=== PATIENT | female | born 1950 | race Caucasian/White ===

== ENCOUNTER 2020-05-17 01:30 | Outpatient (CLI) | payer MEDICARE, SELFPAY ==
--- NOTE | 2020-05-17 07:15 | DI.MRI_ITS ---
EXAM: MR LUMBAR SPINE WO CLINICAL HISTORY: LOW BACK AND RADICULAR PAIN,M53.86,M54.5,Z87.39,H/O CALCIUM PYROPHOSPHATE. TECHNIQUE: Multiplanar multisequence MRI of the Lumbar spine was performed. COMPARISON: No exams were available for comparison FINDINGS: Bones: The last intervertebral disc space is designated the L5/S1 level for the numbering purpose of this examination. The vertebral body heights are well maintained. Alignment is satisfactory. Endpla te degenerative signal changes are seen at L4-5 and L5-S1. Cord: The conus tip ends at the L1 level. It is of normal size and signal intensity. T12-L1: No disc herniations or bulges are present. No central spinal canal or neural foraminal stenos is. L1-2: No disc herniations or bulges are present. No central spinal canal or neural foraminal stenosis . L2-3: No disc herniations or bulges are present. No central spinal canal or neural foraminal stenosis . L3-4: There is a mild diffuse disc bulge. Mild degenerative changes of the facets are noted. These contribute to cause mild narrowing of the central spinal canal. No significant right neural foramina l stenosis is present. There is mild left neural foraminal stenosis. L4-5: There is a mild diffuse disc bulge. Mild hypertrophic changes are seen at the facets. There i s mild narrowing of the central spinal canal. Anti-qt-pcfdcryr bilateral neural foraminal stenosis i s present. L5-S1: There is a diffuse disc bulge and a small central disc herniation. Hypertrophic changes of th e facets are noted. No significant central spinal canal stenosis is present. No significant neural foraminal stenosis is present. Soft tissues: The visualized SI joints and sacrum are well maintained. The paraspinal soft tissues ar e unremarkable. IMPRESSION: Multilevel degenerative changes in the lumbar spine resulting in central spinal canal and neural fora genny stenosis as described above. DATA REPOSITORY:
== END 2020-05-17 01:50 ==
PROVIDERS: PCP Student in an Organized Health Care Education/Training Program; Visit Provider Student in an Organized Health Care Education/Training Program
DX: M48.061 Spinal stenosis, lumbar region without neurogenic claudication (principal); M47.816 Spondylosis without myelopathy or radiculopathy, lumbar region; M51.27 Other intervertebral disc displacement, lumbosacral region; Z87.39 Personal history of other diseases of the musculoskeletal system and connective tissue
CPT/HCPCS: 72148

== ENCOUNTER 2020-07-20 14:55 | Outpatient (CLI) | payer MEDICARE, SELFPAY ==
--- NOTE | 2020-07-20 11:15 | DI.RAD_ITS ---
Exam(s) XR HIP RT COMPLETE AP PELVIS EXAM: XR HIP RT COMPLETE AP PELVIS CLINICAL HISTORY: right lateral hip and groin pain with hip flexion TECHNIQUE: COMPARISON: No exams were available for comparison FINDINGS: Two views were obtained. There are mild degenerative changes of both hips with slight narrowing cart ilaginous joint spaces and moderate osteophyte formation of the acetabula E and to a lesser degree th e femoral heads. There is bony excrescence of the proximal aspect of the right femur below the level of the lesser tro chanter seen on the lateral view. This may represent an osteochondroma. If there is a clinical susp icion of impingement additional evaluation with MRI may be considered. IMPRESSION: RADIATION DOSE DELIVERED: Total DLP
== END 2020-07-20 15:15 ==
PROVIDERS: PCP Student in an Organized Health Care Education/Training Program; Visit Provider Nurse Practitioner Family
DX: R10.31 Right lower quadrant pain (principal); M25.551 Pain in right hip; M16.0 Bilateral primary osteoarthritis of hip
CPT/HCPCS: 73502

== ENCOUNTER → 2020-08-31 09:50 | Outpatient (BNVA) | payer MEDICARE, SELFPAY | PROVIDERS: PCP Student in an Organized Health Care Education/Training Program; Referring Provider Student in an Organized Health Care Education/Training Program; Visit Provider Student in an Organized Health Care Education/Training Program | DX: M16.11 Unilateral primary osteoarthritis, right hip (principal) | CPT/HCPCS: 99203 ==

== ENCOUNTER 2020-10-12 03:44 | Outpatient (CLI) | payer MEDICARE, SELFPAY ==
--- NOTE | 2020-10-12 08:30 | DI.RAD_ITS ---
Exam(s) RF JOINT INJECTION FLUORO GUID EXAM: RF JOINT INJECTION FLUORO GUID CLINICAL HISTORY: left hip inj under fluoro,primary oa,m16.12 TECHNIQUE: Fluoroscopy provided. Radiologist not present. CONTRAST MATERIAL: None COMPARISON: No exams were available for comparison FINDINGS: Fluoroscopy was provided for therapeutic left hip injection Submitted image(s) reveal needle placement via lateral approach with the needle tip at the lateral as pect of the femoral head. There is intra-articular contrast noted. Please refer to the procedure report for complete details. Cumulative Dose: nimco Vicente=5.65 mGy IMPRESSION: RADIATION DOSE DELIVERED:
--- NOTE | 2020-10-12 08:30 | DI.RAD_ITS ---
Exam(s) RF JOINT INJECTION FLUORO GUID EXAM: RF JOINT INJECTION FLUORO GUID CLINICAL HISTORY: Right hip inj under fluoro,primary oa rt hip, m16.11 TECHNIQUE: Fluoroscopy provided. Radiologist not present. CONTRAST MATERIAL: None COMPARISON: No exams were available for comparison FINDINGS: Fluoroscopy was provided for Dr. Thompson during right hip therapeutic injection. Submitted image(s) reveal needle placement via lateral approach with needle tip at the junction of th e lateral aspect of the femoral head and neck. Intra-articular contrast injected. Please refer to the procedure report for complete details. Cumulative Dose: nimco Vicente=4.49 mGy IMPRESSION: RADIATION DOSE DELIVERED:
[2020-10-12] MEDS: Omnipaque 300 MG/ML 10 ML BTL IJ ×2 (13:29→13:31)
[2020-10-12] MEDS: Bupivacaine 0.5% Pres-Free 10 ML VIAL IJ ×2 (13:30→13:36)
[2020-10-12] MEDS: methylPREDNISolone ACETATE 80 MG/ML VIAL IM ×2 (13:31→13:35)
--- NOTE | 2020-10-12 13:40 | OPPNE_ITS ---
Date of service: 10/12/20 Time of Service: 13:40 Procedure Note Date of procedure: 10/12/20 Procedure: Right Hip Injection with Fluoroscopic Guidance Surgeon/Proceduralist/Physician: Stevie Thompson Procedure Diagnosis: Right Hip Osteoarthritis Procedure Indications: Cristy has had persistent pain of the RIGHT and LEFT hip and buttock. Noninvasive measures have been tried. To serve as both diagnostic and therapeutic, an injection under fluoroscopy was recommended. I had discussed the risks of the procedure and the patient elected to proceed. Procedure Description: Cristy was greeted in the flouroscopy room. The correct side was identified and the consent was reviewed with the patient and signed. The patient was then placed in the supine position on the fluoroscopy table. The RIGHT hip was then prepped with Chloraprep. The anterolateral injection starting point was identiifed by bony landmarks and fluoroscopy. The skin and soft tissue in the tract of the injection was anesthetized with 1% Lidocaine. A spinal needle was then inserted deep into the hip joint at the level of the lateral femoral neck under f luoroscopic guidance. A small amount of Omnipaque solution was injected to confirm intraarticular placement. Once confirmed, the hip was injected with 6cc of 0.5% Bupivicaine and 80mg of Depo-Medrol. A bandaid was placed on the injection site. Attention was then turned to the LEFT hip. The LEFT hip was then prepped with Chloraprep. The anterolateral injection starting point was identiifed by bony landmarks and fluoroscopy. The skin and soft tissue in the tract of the injection was anesthetized with 1% Lidocaine. A spinal needle was then inserted deep into the hip joint at the level of the lateral femoral neck under fluoroscopic guidance. A small amount of Omnipaque solution was injected to confirm intraarticular placement. Once confirmed, the hip was injected with 6cc of 0.5% Bupivicaine and 80mg of Depo-Medrol. A bandaid was placed on the injection site. The patient tolerated the procedure well.
== END 2020-10-12 04:04 ==
PROVIDERS: PCP Student in an Organized Health Care Education/Training Program; Visit Provider Student in an Organized Health Care Education/Training Program
DX: M16.11 Unilateral primary osteoarthritis, right hip (principal); M16.12 Unilateral primary osteoarthritis, left hip; M25.551 Pain in right hip; M25.552 Pain in left hip; R10.31 Right lower quadrant pain; R10.32 Left lower quadrant pain
CPT/HCPCS: 20610; 77002; J1040

== ENCOUNTER 2021-01-19 08:37 | Outpatient (CLI) | payer MEDICARE, SELFPAY ==
--- NOTE | 2021-01-19 10:30 | DI.RAD_ITS ---
Exam(s) XR CERVICAL SPINE COMP 4-5V EXAM: XR CERVICAL SPINE COMP 4-5V CLINICAL HISTORY: evaluate bony path; curvature; vert spacing,CERVICALAGIA,M54.2,M25.50,? H/O. TECHNIQUE: 2D digital imaging was performed. COMPARISON: No exams were available for comparison FINDINGS: There is straightening of the normal cervical lordosis secondary to degenerative changes. There is m ild narrowing of the C5-6 and C6-7 disc spaces and small endplate osteophytes, projecting mainly ante riorly. Facet degenerative changes are noted throughout. There is apparent bilateral neural foramin al narrowing at C5-6 and C6-7. This soft tissues are unremarkable. IMPRESSION: Degenerative changes causing bilateral neural foraminal narrowing at C5-6 and C6-7. DATA REPOSITORY: RADIATION DOSE DELIVERED:
== END 2021-01-19 08:57 ==
PROVIDERS: PCP Student in an Organized Health Care Education/Training Program; Visit Provider Student in an Organized Health Care Education/Training Program
DX: M25.59 Pain in other specified joint; M50.322 Other cervical disc degeneration at C5-C6 level; M50.323 Other cervical disc degeneration at C6-C7 level
CPT/HCPCS: 72050

== ENCOUNTER 2021-04-26 02:20 | Outpatient (CLI) | payer MEDICARE, SELFPAY ==
--- NOTE | 2021-04-26 13:32 | DI.DEXA_ITS ---
Exam(s) XR DEXA BONE DENSITY W/WO DUSTIN EXAM: XR DEXA BONE DENSITY W/WO DUSTIN CLINICAL HISTORY: evaluate osteoporosis,m81.0 TECHNIQUE: Routine DEXA evaluation of the lumbar spine, hip, or forearm. COMPARISON: CR XR HIP RT COMPLETE AP PELVIS from 07/20/2020 FINDINGS: Performed on a Hologic unit. Lateral image: No compression fracture evident. Lumbar Spine total T-score: -0.9 Hip total T-score:-3.1 Independent reading at the level of the femoral neck yields at T-score of -2.9. Forearm total T-score: -2.8 IMPRESSION: Bone mineral density measures in the osteoporosis range. Fracture risk is high. Note: Any spine fracture indicates 5x risk for subsequent spine fracture and 2x risk for subsequent h ip fracture. World Health Organization criteria for BMD interpretation classify patients: Normal...... T- Score at or above -1.0 Osteopenic... T- Score between -1.0 and -2.5 Osteoporosis... T-Score at or below -2.5
== END 2021-04-26 02:40 ==
PROVIDERS: PCP Student in an Organized Health Care Education/Training Program; Visit Provider Student in an Organized Health Care Education/Training Program
DX: M81.0 Age-related osteoporosis without current pathological fracture (principal)
CPT/HCPCS: 77080

== ENCOUNTER 2021-05-22 03:04 | Outpatient (CLI) | payer MEDICARE, SELFPAY ==
--- NOTE | 2021-05-22 08:15 | DI.RAD_ITS ---
Exam(s) XR SHOULDER RT COMPLETE 2+V EXAM: XR SHOULDER RT COMPLETE 2+V CLINICAL HISTORY: evaluate joint space; bony path; Ca,rt shoulder pain, m25.511. TECHNIQUE: 2D digital imaging was performed. COMPARISON: No exams were available for comparison FINDINGS: Four views the right shoulder reveal no evidence of fracture or dislocation nor diminution of the sub acromial space. However, there is a tiny calcification just above the greater tuberosity indicating calcific tendonitis of the rotator cuff mechanism. No osteophytes. No joint space narrowing. AC bud int exhibits mild degenerative changes. IMPRESSION: 1-2 millimeter calcification above the greater tuberosity consistent with calcific rotator cuff tendi nitis. DATA REPOSITORY: RADIATION DOSE DELIVERED:
--- NOTE | 2021-05-22 08:15 | DI.RAD_ITS ---
Exam(s) XR SHOULDER LT COMPLETE 2+V EXAM: XR SHOULDER LT COMPLETE 2+V CLINICAL HISTORY: lt shoulder pain, m25.511. TECHNIQUE: 2D digital imaging was performed. COMPARISON: CR XR SHOULDER RT COMPLETE 2+V from 05/22/2021 FINDINGS: Four views of the left shoulder reveal no evidence of fracture nor dislocation or abnormal soft tissu e calcifications. No degenerative changes in the glenohumeral joint. Subacromial space is not dimin ished. Mild degenerative changes AC. No osseous lesions. Bone density age-appropriate. IMPRESSION: No significant radiographic findings. DATA REPOSITORY: RADIATION DOSE DELIVERED:
--- NOTE | 2021-05-22 08:15 | DI.RAD_ITS ---
Exam(s) XR KNEE RT 4V AP,LAT,TAD,PAT EXAM: XR KNEE RT 4V AP,LAT,TAD,PAT CLINICAL HISTORY: eval joint space, CPPD,rt knee pain, m25.561. TECHNIQUE: 2D digital imaging was performed. COMPARISON: CR XR KNEE LT 4V AP,LAT,TAD,PAT from 05/22/2021 FINDINGS: Four views of the right knee reveal no evidence of fracture although there appears to be a small amou nt of increased joint fluid. Chondrocalcinosis is noted in both medial and lateral compartments. No narrowing of the medial lateral compartments. No osteophytes. No degenerative changes evident in t he patellofemoral compartment. IMPRESSION: Chondrocalcinosis. No other findings although there does appear to be a small joint effusion. DATA REPOSITORY: RADIATION DOSE DELIVERED:
--- NOTE | 2021-05-22 08:15 | DI.RAD_ITS ---
Exam(s) XR KNEE LT 4V AP,LAT,TAD,PAT EXAM: XR KNEE LT 4V AP,LAT,TAD,PAT CLINICAL HISTORY: eval joint space, CPPD,lt knee pain,m25.562. TECHNIQUE: 2D digital imaging was performed. COMPARISON: No exams were available for comparison FINDINGS: Four views of the left knee reveal no evidence of fracture nor joint effusion. No joint space narrow ing but there is chondrocalcinosis in both medial lateral compartments without joint space narrowing nor osteophytes. IMPRESSION: No joint space narrowing. Chondrocalcinosis. No joint effusion. DATA REPOSITORY: RADIATION DOSE DELIVERED:
== END 2021-05-22 03:24 ==
PROVIDERS: PCP Student in an Organized Health Care Education/Training Program; Visit Provider Student in an Organized Health Care Education/Training Program
DX: M25.511 Pain in right shoulder (principal); M75.31 Calcific tendinitis of right shoulder; M25.512 Pain in left shoulder; M25.562 Pain in left knee; M11.262 Other chondrocalcinosis, left knee; M25.561 Pain in right knee; M25.461 Effusion, right knee; M11.261 Other chondrocalcinosis, right knee; M11.89 Other specified crystal arthropathies, multiple sites
CPT/HCPCS: 36415; 80048; 82306; 73030; 73564

== ENCOUNTER 2021-05-22 04:03 | Outpatient (CLI) | payer MEDICARE, SELFPAY ==
[2021-05-22 14:37] LABS: Anion Gap 9.6 mmol/L (3-11); BUN 16 mg/dL (7-18); CO2 28.4 mmol/L (21.0-32.0); CREATININE 0.7 mg/dL (0.55-1.02); Calcium 9.7 mg/dL (8.5-10.1); Chloride 100 mmol/L (98-107); Glucose 133 mg/dL (74-106); Sodium 138 mmol/L (136-145)
[2021-05-24 04:51] LABS: Vitamin D 25 Total 56.9 ng/mL (30-100)
== END 2021-05-22 04:04 | disposition home or self-care (01) ==
LOC: LBO 04:04
PROVIDERS: PCP Student in an Organized Health Care Education/Training Program; Visit Provider Student in an Organized Health Care Education/Training Program
DX: M81.0 Age-related osteoporosis without current pathological fracture (principal); E86.0 Dehydration; Z79.1 Long term (current) use of non-steroidal anti-inflammatories (NSAID)
CPT/HCPCS: 36415; 80048; 82306

== ENCOUNTER → 2023-05-19 04:12 | Outpatient (CLI) | payer MEDICARE, SELFPAY ==
--- NOTE | 2023-05-19 08:00 | DI.DEXA_ITS ---
Exam(s) XR DEXA BONE DENSITY W/WO DUSTIN EXAM: XR DEXA BONE DENSITY W/WO DUSTIN CLINICAL HISTORY: evaluate bone density post med Tx, on prednisone therapy, osteoporosis TECHNIQUE: COMPARISON: CR XR DEXA BONE DENSITY W/WO DUSTIN from 04/26/2021 FINDINGS: Lateral Spine Image: Unremarkable. No compression deformities identified. Left hip: Total T-Score: -3.4. This compares to -3.1 on the prior examination. Total Z-Score: -1.7 T- and Z-scores: Findings are consistent with osteoporosis. Lumbar Spine: Total T-Score: -0.1. This compares to -0.9 on the prior examination. Total Z-Score: 2.3 T- and Z-scores: Within normal limits. IMPRESSION: Osteoporosis of the left hip.
== END ==
PROVIDERS: PCP Student in an Organized Health Care Education/Training Program; Visit Provider Student in an Organized Health Care Education/Training Program
DX: Z79.52 Long term (current) use of systemic steroids (principal); M81.0 Age-related osteoporosis without current pathological fracture; Z79.83 Long term (current) use of bisphosphonates; Z13.820 Encounter for screening for osteoporosis
CPT/HCPCS: 77080

== ENCOUNTER 2023-08-26 13:23 | Emergency (ER) | payer MEDICARE, SELFPAY ==
[2023-08-26] VITALS (10 sets, daily range): BP systolic 133–139; BP diastolic 50–108; PULSE 65–78; RESP 18; TEMP 36.6; O2SAT 97–99
--- NOTE | 2023-08-26 13:45 | DI.MRI_ITS ---
Exam(s) MR BRAIN WO EXAM: MR BRAIN WO CLINICAL HISTORY: Diplopia, 6th cranial nerve palsy TECHNIQUE: Multiplanar multisequence MRI of the brain was performed. COMPARISON: No exams were available for comparison FINDINGS: CEREBRAL PARENCHYMA: There is no evidence of intracranial hemorrhage, mass effect, or shift of midline structures. There are no extra-axial fluid collections. Ventricles are not enlarged or shifted. There is no significant focal signal abnormality in the cerebellar hemispheres nor within the marlon, m idbrain, and thalami. There are multiple small sub cm foci of FLAIR bright signal abnormality in the bilateral periventricu lar white matter, the most prominent being adjacent to the atrium of the left lateral ventricle. The se areas and not associated with hemorrhage, surrounding edema, nor restricted diffusion. There is no significant focal signal abnormality evident on diffusion imaging to suggest acute ischem ic event. SWI: No evidence of microhemorrhages. PITUITARY GLAND: No mass nor parasellar abnormality. No obvious abnormality in the cavernous sinuses. FLOW VOIDS: The expected flow void are noted. No evidence of obvious aneurysm nor obvious vascular ma lformation. PARANASAL SINUSES: The visualized paranasal sinuses appear unremarkable. No obvious finding ORBITS: No obvious findings. IMPRESSION: Chronic small-vessel white matter ischemic changes but no evidence of acute ischemic event and no bria dence of intracranial hemorrhage. Called by myself to ER provider DATA REPOSITORY:
--- NOTE | 2023-08-26 13:55 | W.ED.GENAD ---
Discharge Plan Discharge Details Chief Complaint: EyeProblem Primary Care Provider: Lili Burgess ED Provider: Gil Solo Home Meds and New Rx's Prescriptions: No Action CeraVe SA Lotion See Rx Instructions topical .COMPLEX Qty: 237 2RF Rx Instructions: 8-10 FTU BID to arms, legs topically; Centrum Women 18-400 mg-mcg tablet 1 tab PO DAILY Patient Comments: with 100mg of magnesium biotin 2,000 mcg PO DAILY cholecalciferol (vitamin D3) 25 mcg (1,000 unit) capsule 50 mcg PO DAILY naproxen 500 mg tablet 500 mg PO DAILY PRN (Reason: pain) Qty: 90 3RF Rx Instructions: hip/back pain diclofenac sodium [Arthritis Pain (diclofenac)] 1 % gel 2 g topical QID PRN (Reason: inflammation) Qty: 100 1RF Rx Instructions: apply to shldr/neck Probiotic Pearls Women's 1 billion cell capsule,delayed release(DR/EC) PO DAILY calcium carbonate 600 mg calcium (1,500 mg) tablet 600 mg PO DAILY tacrolimus 0.1 % ointment 1 applic topical BID Rx Instructions: When not using augmented betamethasone estradiol 0.01 % (0.1 mg/gram) cream 2 g vaginal DAILY Qty: 42.5 2RF betamethasone, augmented [Diprolene (augmented)] 0.05 % ointment 1 applic topical BID PRN (Reason: dermatitis of LE) Qty: 45 3RF Rx Instructions: [place]/04/20 [place] [facility] (apply topically twice daily x 2 weeks, with one week break; repeat as needed for flares) alendronate 70 mg tablet, effervescent 70 mg PO QWEEK Qty: 60 0RF Rx Instructions: Take weekly, dissolved in water as per pharmacy directions HPI General Mode of arrival: ambulatory. Date/Time Provider Initiated Documentation: 08/26/23 13:38. Limitations to Documentation: no limitations. Information obtained by: patient, RN notes reviewed and old records reviewed. 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 The provider at offsite facility does recommend MRI for double vision. Patient has no obvious other cranial nerve deficits noted on initial exam denies any weakness numbness tingling in arms or legs, she is alert and oriented x 4, Related Data Home Medications Medication Instructions Recorded Confirmed calcium carbonate 600 mg PO DAILY 01/09/21 08/26/23 biotin 2,000 mcg PO DAILY 05/08/21 08/26/23 cholecalciferol (vitamin D3) 25 50 mcg PO DAILY 05/08/21 08/26/23 mcg (1,000 unit) capsule multivitamin-ferrous 1 tab PO DAILY 05/08/21 08/26/23 fumarate-folic acid 18 mg-400 mcg tablet (Centrum Women) tacrolimus 0.1 % topical ointment 1 applic topical BID 01/07/22 08/26/23 salicylic acid-ceramides 1,3,6-II See Rx Instructions topical 03/14/22 08/26/23 lotion (CeraVe SA lotion) .COMPLEX Rosacea #237 mL diclofenac sodium 1 % topical gel 2 g topical QID PRN inflammation 08/09/22 08/26/23 (Arthritis Pain (diclofenac)) #100 grams naproxen 500 mg tablet 500 mg PO DAILY PRN pain #90 tabs 08/09/22 08/26/23 L.acidophilus-L.plantarum-L.rhamnosus cap PO DAILY 03/25/23 04/01/23 1 billion cell capsule,delay rel (Probiotic Pearls Women's) estradiol 0.01% (0.1 mg/gram) 2 g vaginal DAILY #42.5 grams 04/04/23 08/26/23 vaginal cream betamethasone, augmented 0.05 % 1 applic topical BID PRN 04/08/23 08/26/23 topical ointment (Diprolene dermatitis of LE #45 grams (augmented)) alendronate 70 mg effervescent 70 mg PO QWEEK 30 or 60 as best 04/11/23 08/26/23 tablet ordered/dispensed per PHARM #60 tabs Previous Rx's Medication Instructions Recorded salicylic acid-ceramides 1,3,6-II See Rx Instructions topical 03/14/22 lotion (CeraVe SA lotion) .COMPLEX Rosacea #237 mL diclofenac sodium 1 % topical gel 2 g topical QID PRN inflammation 08/09/22 (Arthritis Pain (diclofenac)) #100 grams naproxen 500 mg tablet 500 mg PO DAILY PRN pain #90 tabs 08/09/22 estradiol 0.01% (0.1 mg/gram) 2 g vaginal DAILY #42.5 grams 04/04/23 vaginal cream betamethasone, augmented 0.05 % 1 applic topical BID PRN 04/08/23 topical ointment (Diprolene dermatitis of LE #45 grams (augmented)) alendronate 70 mg effervescent 70 mg PO QWEEK 30 or 60 as best 04/11/23 tablet ordered/dispensed per PHARM #60 tabs Allergies Allergy/AdvReac Type Severity Reaction Status Date / Time No Known Allergies Allergy Verified 08/26/23 13:34 General Stated Complaint: EyeProblem LAM: 3 Review of Systems All systems reviewed & are unremarkable except as noted in HPI and below Constitutional Constitutional: Reports as per HPI, Denies headache(s) and Denies weakness Eyes Eyes: Reports as per HPI, Reports diplopia and Reports eye pain ENT Ears, Nose, Mouth, and Throat: Denies headache(s) Cardiovascular Cardiovascular: Denies chest pain and Denies dyspnea Respiratory Respiratory: Denies dyspnea Gastrointestinal Gastrointestinal: Denies abdominal pain Musculoskeletal Musculoskeletal: Denies abnormal gait, Denies numbness and Denies tingling Neurologic Neurologic: Reports as per HPI, Denies abnormal gait, Denies headache(s), Denies lack of coordination, Denies localized weakness, Denies numbness, Reports other visual disturbances, Denies tingling and Denies weakness Exam Narrative Exam Narrative: Constitutional: Alert and oriented x3. Appears stated age. Normal body habitus. Head: Normocephalic, no trauma. Eyes: Pupils PERRL, Red reflex noted, EOM's intact. Eyelids symmetrical without lesions, discharge, or swelling. ENT: Bilateral TM's WNL, External ear normal to inspection, no mastoid TTP, swelling, or erythema, Nasal turbinates WNL, no nasal discharge. Normal dentition, Posterior pharynx WNL, no exudate. Chest: RRR, Normal S1, S2, distal pulses intact. Resp: Lungs clear to auscultation bilaterally, no wheezes, rales, or rhonchi. Abdomen: Soft, non-distended, Normoactive bowel sounds all 4 quads. Musculoskeletal: Normal gait, Moves all 4 extremities without difficulty. 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 Skin: No suspicious rashes or lesions. Capillary refill less than 2 sec. Neurologic: Alert and oriented x 3. No gross motor neurodeficits noted Sensory: Intact bilaterally all 4 extremities. Intact dorsiflexion pedal flexion, no leg drop, denies any problems with coordination, negative [id number]. No pronator drift. Hematologic/Lymphatic: No ecchymosis, no lymphadenopathy. Course Vital Signs Vital signs: Vital Signs Temperature 36.6 C 08/26/23 13:29 Pulse 72 08/26/23 13:29 Respiratory Rate 18 08/26/23 13:29 Blood Pressure 139/57 L 08/26/23 13:29 Pulse Oximetry 97 08/26/23 13:29 Temperature 36.6 C 08/26/23 13:42 Pulse 72 08/26/23 13:42 Respiratory Rate 18 08/26/23 13:42 Respiratory Effort Normal, Non-Labored 08/26/23 13:33 Blood Pressure 139/57 L 08/26/23 13:42 Blood Pressure Position Sitting 08/26/23 13:42 Pulse Oximetry 97 08/26/23 13:42 Oxygen Delivery Method Room Air 08/26/23 13:42 Oxygen Flow Rate 0 08/26/23 13:42 Pain Level 0 08/26/23 13:42 Medical Decision Making 73-year-old female presents to the ER referred by [facility] in [facility] for evaluation of double vision since August 14 and 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 The provider at offsite facility does recommend MRI for double vision. Patient has no obvious other cranial nerve deficits noted on initial exam denies any weakness numbness tingling in arms or legs, she is alert and oriented x 4, Workup ordered including CBC CMP PT PTT, IV urinalysis MRI brain without contrast. Care is to be handed off to oncoming provider MARCIO Arizmendi pending MRI results. Expected disposition is discharge with follow-up with PCP versus neurology consult. Medical Records Medical records reviewed: Yes I reviewed the patient's medical records. Lab Data Lab results reviewed: Yes I reviewed the patient's lab results. Labs: Laboratory Tests Range/Units 08/26/23 14:01 WBC (4.4-10.8) 10^3/uL 8.30 RBC (3.93-5.22) 10^6/uL 4.27 Hgb (11.2-15.7) g/dL 12.9 Hct (36.0-46.0) % 39.4 MCV (80-95) fL 92 MCH (27.0-33.0) pg 30.2 MCHC (32.0-36.0) % 32.7 RDW (11.7-14.6) % 11.5 L Plt Count (130-400) 10^3/uL 437 H MPV (8.0-11.0) fL 8.3 Immature Gran % % 0.2 Neutrophils % % 70.4 Lymphocytes % % 18.8 Monocytes % % 8.7 Eosinophils % % 1.1 Basophils % % 0.8 Nucleated RBC % (0.0-0.3) % 0.0 Absolute Neutrophils (1.2-6.7) 10^3/uL 5.84 Absolute Lymphocytes (1.2-3.4) 10^3/uL 1.56 Absolute Monocytes (0.1-0.8) 10^3/uL 0.72 Absolute Eosinophils (0.0-0.7) 10^3/uL 0.09 Absolute Basophils (0.0-0.2) 10^3/uL 0.07 PT (9.1-11.1) sec 10.2 INR (0.9-1.1) 1.0 APTT (23.6-32.8) sec 27.0 Sodium (136-145) mmol/L 140 Potassium (3.5-5.1) mmol/L 3.9 Chloride (98-107) mmol/L 100 Carbon Dioxide (21.0-32.0) mmol/L 29.7 Anion Gap (3-11) mmol/L 10.3 BUN (7-18) mg/dL 15 Creatinine (0.55-1.02) mg/dL 0.6 Est GFR (CKD-EPI 2020) (mL/min/1.73m2) 94.13 Glucose (74-106) mg/dL 96 Calcium (8.5-10.1) mg/dL 9.9 Magnesium (1.8-2.4) mg/dL 2.3 Total Bilirubin (0.2-1.0) mg/dL 0.5 AST (15-37) U/L 25 ALT (14-59) U/L 26 Alkaline Phosphatase (46-116) U/L 74 Total Protein (6.4-8.2) g/dL 8.7 H Albumin (3.4-5.0) g/dL 3.8 Quality:SDOH Health Related Social Needs: No Data to Display PFSH All Active Problems Cognitive complaints with normal exam (Acute) mini-co with delayed word #3 and correct clock, but some delay/confusn over little/big hand .. Memory changes (Acute) Anxiety (Chronic) Back pain due to inflammatory process (Acute) Hx of ongoing treatment with alendronate (Fosamax) (Acute) UTI (urinary tract infection) (Acute) x2! 06/06 and 07/10/2022 .. with resolution post Bactrim, but wondering re: etiology. Ptosis of both eyelids (Acute) Other osteoporosis without current pathological fracture (Acute) 09/26/21 Rheumatology note Osteoporosis (Chronic) Apr 2021 shows Hip (-3.1), L (-0.9), FenNk (-2.9), FArm (-2.8).. Hip T-score -2.7, no statistically change from 05/05/14 study Myalgia (Acute) mixed arthralgias/myalgias .. Arthralgia (Acute) mixed arthralgias/myalgias .. Polymyalgia rheumatica (Acute) Resolving, off prednisone (08/2022)! [place]01/[place] [facility] [place] Sharad May MD Bilateral buttock pain (Acute) New, rey with car rides .. Hips improved, but buttocks hurt. Pains are comstantly changing .. Knee pain, bilateral (Acute) Cervical disc disorder at C5-C6 level with radiculopathy (Acute) Cervicalgia (Acute) Worsening neck pain, stiffness .. Hx arthritis (?) per pt (XR? Dx?) Shoulder joint pain (Chronic) Hx Surgeries: Rt well-done, well-healed.. Lft poorly tolerated, poor healing (2' incision thru mm). Lower back pain (Acute) Nummular dermatitis (Acute) [place] Osorio, [facility] [place] Skin lesions, generalized (Acute) Probable amarilis keratoses, but derm evaluation appreciated as they are bothersome. Itching, discomfort on/off due to lesion and/or area (back, breast). Can Dr. thompson review/remove? 12/08/19[place] [place] note-irritated seborrheic Keratoses Angiokeratoma Psoriasis (a type of skin inflammation) (Chronic) Shave Biopsy 01/26/2018 - Leg lesion, responds well to Triamcinalone, used carefully. One tube lasts a year .. Rosacea (Acute) Metronidazole used sparingly .. per Dr. Thompson x years ago, refilled by PCP. Hx cauterizations. Atrophic vaginitis (Acute) Hyperlipidemia (Chronic) Statin started August 2017 --> STOPPED? LIPIDs 11/2018, 03/2020 WNL w/ good HDL. Medical History On prednisone therapy Completed 2021, Rheumatoid factor negative RF Neg and CCP Ab S, NEG per [facility] Lab results, 05/2021 Morning joint stiffness NOT OA per Rheum note, 06/01/21, as hips move well as she rises form chair w/o aid of UE. Hx of calcium pyrophosphate deposition disease (CPPD) Hx shoulder ~ 1988, XXXX Surgical History History of delivery 1971 & 1968 History of shoulder surgery 2008: Removal of Calcium Deposit (L) 1986: Removal of Calcium Deposit (R) History of tonsillectomy Family History Father Leukemia Congestive heart failure Hypertension Mother Diabetes Hypertension Brother Malignant neoplasm of pancreas Malignant tumor of pharynx Son Sarcoidosis Sjogren's syndrome Ny disease Social History Smoking/Tobacco Use Status: Former Tobacco Use Quit Date: 11/03/18 Tobacco: How many years used: 15 Smoking risk assessment performed?: Yes Alcohol Intake: never Drug use: Never Substance use type: does not use Foster care: No Household members: none Housing: house Number of Children: 2 number of grandchildren: 2 Communication Needs: None Do you need help understanding health information?: Never 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 She was sent here from [facility] for possible MRI and further evaluation. Patient denies headache, she does have some left facial lip droop which she reports is at her baseline. She is ANO x 4, no gross motor neuro deficits noted. Pending MRI brain without contrast results. Last updated by Danielle Jacobs NP at 08/26/23 15:11
[2023-08-26 14:27] LABS: Abs Immature Grans 0.02 10^3/uL (0.0-0.06); Absolute Basophil Count 0.07 10^3/uL (0.0-0.2); Absolute Eosinophil Count 0.09 10^3/uL (0.0-0.7); Absolute Lymphocyte Count 1.56 10^3/uL (1.2-3.4); Absolute Monocyte Count 0.72 10^3/uL (0.1-0.8); Absolute Neutrophil Count 5.84 10^3/uL (1.2-6.7); Basophils % 0.8 %; Eosinophils % 1.1 %; HCT 39.4 % (36.0-46.0); HGB 12.9 g/dL (11.2-15.7); Immature Grans % 0.2 %; Lymphocytes % 18.8 %; MCH 30.2 pg (27.0-33.0); MCHC 32.7 % (32.0-36.0); MCV 92 fL (80-95); MPV 8.3 fL (8.0-11.0); Monocytes % 8.7 %; Neutrophils % 70.4 %; Platelet Count 437 10^3/uL (130-400); RBC 4.27 10^6/uL (3.93-5.22); RDW 11.5 % (11.7-14.6); RDW-SD 39.2 fL
[2023-08-26 14:38] LABS: Prothrombin Time 10.2 sec (9.1-11.1)
[2023-08-26 14:51] LABS: ALT 26 U/L (14-59); AST 25 U/L (15-37); Albumin 3.8 g/dL (3.4-5.0); Alkaline Phosphatase 74 U/L (46-116); Anion Gap 10.3 mmol/L (3-11); BUN 15 mg/dL (7-18); Bilirubin, Total 0.5 mg/dL (0.2-1.0); CO2 29.7 mmol/L (21.0-32.0); CREATININE 0.6 mg/dL (0.55-1.02); Calcium 9.9 mg/dL (8.5-10.1); Chloride 100 mmol/L (98-107); Estimated GFR 94.13 (mL/min/1.73m2); Glucose 96 mg/dL (74-106); Magnesium 2.3 mg/dL (1.8-2.4); Potassium 3.9 mmol/L (3.5-5.1); Sodium 140 mmol/L (136-145); Total Protein 8.7 g/dL (6.4-8.2)
--- NOTE | 2023-08-26 16:02 | ED.PROG_ITS ---
Date of service: 08/26/23 Time of Service: 16:02 Medical Decision Making This dictation utilizes [id number] dictation software and may contain unedited grammatical errors. Patient seen in sign-out from Danielle Jacobs NP- please see her complete note. Essentially this 73 y/o F presents to ED today with a chief complaint of diplopia for the past week. Patient went to the eye doctor and he states she has a 6th cranial nerve palsy with L sided mouth drooping since at least August 14. Patient has had laboratory evaluation at time of sign-out, has no focal sensory or motor deficits save for this 6th CN palsy and L sided facial droop of unknown duration. Patient is awaiting read of MRI Brain wo Contrast - may need admission vs specialty consult for outpatient follow-up based on these results. Patients' medical history: Memory changes, anxiety, ptosis, cervicalgia, psoriasis, hyperlipidemia. Family and social history: Noncontributory. Diagnostic studies of: -Reviewed basic labs - benign, UA sample not collected yet by time of sign-out. -MRI shows no acute processes Interventions of: -none, recommend Neuro/Ophthalmology or Neuro-ophthalmology follow-up by PCP referral. 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 Patient was awaiting MRI which was negative for any acute intracranial processes. I recommend outpatient follow-up by PCP referral to neurology plus minus ophthalmology, I discussed this with the patient and strict return criteria for any acute visual changes, signs or symptoms of stroke like weakness, tingling, numbness, slurred speech, confusion and any return for severe sudden onset headache with further visual changes.. Findings not consistent with CVA, CN Lesion, loss of vision. Disposition of Diplopia. Patient verbalized understanding of the plan and return to ED criteria and e ngaged in shared decision making. Medical Records Medical records reviewed: Yes I reviewed the patient's medical records. Imaging Data Radiologic Study: Attestation: I personally reviewed and interpreted this imaging study as follows: Imaging: MRI Radiologist's impression: EXAM: MR BRAIN WO CLINICAL HISTORY: Diplopia, 6th cranial nerve palsy TECHNIQUE: Multiplanar multisequence MRI of the brain was performed. COMPARISON: No exams were available for comparison FINDINGS: CEREBRAL PARENCHYMA: There is no evidence of intracranial hemorrhage, mass effect, or shift of midline structures. There are no extra-axial fluid collections. Ventricles are not enlarged or shifted. There is no significant focal signal abnormality in the cerebellar hemispheres nor within the marlon, midbrain, and thalami. There are multiple small sub cm foci of FLAIR bright signal abnormality in the bilateral periventricular white matter, the most prominent being adjacent to the atrium of the left lateral ventricle. These areas and not associated with hemorrhage, surrounding edema, nor restricted diffusion. There is no significant focal signal abnormality evident on diffusion imaging to suggest acute ischemic event. SWI: No evidence of microhemorrhages. PITUITARY GLAND: No mass nor parasellar abnormality. No obvious abnormality in the cavernous sinuses. FLOW VOIDS: The expected flow void are noted. No evidence of obvious aneurysm nor obvious vascular malformation. PARANASAL SINUSES: The visualized paranasal sinuses appear unremarkable. No obvious finding ORBITS: No obvious findings. IMPRESSION: Chronic small-vessel white matter ischemic changes but no evidence of acute ischemic event and no evidence of intracranial hemorrhage. Called by myself to ER provider Lab Data Lab results reviewed: Yes I reviewed the patient's lab results. Labs: Laboratory Tests Range/Units 08/26/23 08/26/23 14:01 16:13 WBC (4.4-10.8) 10^3/uL 8.30 RBC (3.93-5.22) 10^6/uL 4.27 Hgb (11.2-15.7) g/dL 12.9 Hct (36.0-46.0) % 39.4 MCV (80-95) fL 92 MCH (27.0-33.0) pg 30.2 MCHC (32.0-36.0) % 32.7 RDW (11.7-14.6) % 11.5 L Plt Count (130-400) 10^3/uL 437 H MPV (8.0-11.0) fL 8.3 Immature Gran % % 0.2 Neutrophils % % 70.4 Lymphocytes % % 18.8 Monocytes % % 8.7 Eosinophils % % 1.1 Basophils % % 0.8 Nucleated RBC % (0.0-0.3) % 0.0 Absolute Neutrophils (1.2-6.7) 10^3/uL 5.84 Absolute Lymphocytes (1.2-3.4) 10^3/uL 1.56 Absolute Monocytes (0.1-0.8) 10^3/uL 0.72 Absolute Eosinophils (0.0-0.7) 10^3/uL 0.09 Absolute Basophils (0.0-0.2) 10^3/uL 0.07 PT (9.1-11.1) sec 10.2 INR (0.9-1.1) 1.0 APTT (23.6-32.8) sec 27.0 Sodium (136-145) mmol/L 140 Potassium (3.5-5.1) mmol/L 3.9 Chloride (98-107) mmol/L 100 Carbon Dioxide (21.0-32.0) mmol/L 29.7 Anion Gap (3-11) mmol/L 10.3 BUN (7-18) mg/dL 15 Creatinine (0.55-1.02) mg/dL 0.6 Est GFR (CKD-EPI 2020) (mL/min/1.73m2) 94.13 Glucose (74-106) mg/dL 96 Calcium (8.5-10.1) mg/dL 9.9 Magnesium (1.8-2.4) mg/dL 2.3 Total Bilirubin (0.2-1.0) mg/dL 0.5 AST (15-37) U/L 25 ALT (14-59) U/L 26 Alkaline Phosphatase (46-116) U/L 74 Total Protein (6.4-8.2) g/dL 8.7 H Albumin (3.4-5.0) g/dL 3.8 Urine Color (Yellow) Yellow Urine Clarity (Clear) Clear Urine pH (5-8) 7.5 Ur Specific [place] (1.005-1.025) 1.015 Urine Protein (Neg-Trace) mg/dL Negative Urine Ketones (Negative) mg/dL Negative Urine Blood (Negative) Trace-lysed H Urine Nitrite (Negative) Negative Urine Bilirubin (Negative) Negative Urine Urobilinogen (Up to 0.2) mg/dL 0.2 Ur Leukocyte Esterase (Negative) Negative Urine RBC (0-2) HPF 3-5 H Urine WBC (0-5) HPF Negative Ur Epithelial Cells (Negative) HPF Rare Urine Crystals (Negative) HPF Negative Urine Bacteria (Negative) HPF Negative Urine Mucus (Negative) Negative Ur Culture Indicated? No Urine Glucose (Negative) mg/dL Negative Quality:SDOH Health Related Social Needs: No Data to Display Sign Out Sign Out Data: Sign Out Comment: 73-year-old female presents with diplopia and left eye pain since August 14. She was sent here from [facility] for possible MRI and further evaluation. Patient denies headache, she does have some left facial lip droop which she reports is at her baseline. She is ANO x 4, no gross motor neuro deficits noted. Pending MRI brain without contrast results. Last updated by Danielle Jacobs NP at 08/26/23 15:11 Discharge Plan Disposition Patient Disposition: Home Condition: Stable Discharge Details Clinical Impression: Diplopia Primary Care Provider: Lili Burgess ED Provider: Gil Solo Home Meds and New Rx's Prescriptions: Continued CeraVe SA Lotion See Rx Instructions topical .COMPLEX Qty: 237 2RF Rx Instructions: 8-10 FTU BID to arms, legs topically; Centrum Women 18-400 mg-mcg tablet 1 tab PO DAILY Patient Comments: with 100mg of magnesium biotin 2,000 mcg PO DAILY cholecalciferol (vitamin D3) 25 mcg (1,000 unit) capsule 50 mcg PO DAILY naproxen 500 mg tablet 500 mg PO DAILY PRN (Reason: pain) Qty: 90 3RF Rx Instructions: hip/back pain diclofenac sodium [Arthritis Pain (diclofenac)] 1 % gel 2 g topical QID PRN (Reason: inflammation) Qty: 100 1RF Rx Instructions: apply to shldr/neck Probiotic Pearls Women's 1 billion cell capsule,delayed release(DR/EC) PO DAILY calcium carbonate 600 mg calcium (1,500 mg) tablet 600 mg PO DAILY tacrolimus 0.1 % ointment 1 applic topical BID Rx Instructions: When not using augmented betamethasone estradiol 0.01 % (0.1 mg/gram) cream 2 g vaginal DAILY Qty: 42.5 2RF betamethasone, augmented [Diprolene (augmented)] 0.05 % ointment 1 applic topical BID PRN (Reason: dermatitis of LE) Qty: 45 3RF Rx Instructions: 08/04/20 per [facility] [place] Derm (apply topically twice daily x 2 weeks, with one week break; repeat as needed for flares) alendronate 70 mg tablet, effervescent 70 mg PO QWEEK Qty: 60 0RF Rx Instructions: Take weekly, dissolved in water as per pharmacy directions Discharge Instructions Instructions: Double Vision Additional Instructions: You were seen in the emergency department for your reported cranial nerve palsy by your 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 He also have reported double vision ongoing. There was nothing seen on your MRI to suggest current cranial or brain lesion or stroke. I think you need to follow-up with neurology or ophthalmology, or neuro-ophthalmology at [facility]. Please call your primary care office and see if they can process this referral for you. Please return to the emergency department for any worsening visual changes, loss of vision, severe sudden onset headache, weakness, numbness, tingling, slurred speech, confusion, any other neurologic abnormality. Referrals: Lili Burgess DO [Primary Care Provider] - Discharge Data Discharge Date/Time-TO BE ENTERED AT DEPARTURE: 08/26/23 17:14
--- NOTE | 2023-08-26 16:05 | DI.VRAD_ITS ---
PROCEDURE INFORMATION: Exam: MR Head Without Contrast Exam date and time: 08/26/2023 2:53 PM Age: 73 years old Clinical indication: Other: Diplopia, 6th cranial nerve palsy TECHNIQUE: Imaging protocol: Magnetic resonance imaging of the head without contrast. COMPARISON: CR XR CERVICAL SPINE COMP 4-5V 01/19/2021 10:14 AM FINDINGS: Brain: Mild parenchymal volume loss. Mild bilateral periventricular and subcortical white matter T2 hyperintensities are present compatible with small-vessel ischemic disease. No midline shift. No mass, acute infarct, hemorrhage, or extra-axial fluid collection. Cerebral ventricles: Normal. No ventriculomegaly. Bones: Unremarkable. Paranasal sinuses: Normal as visualized. No acute sinusitis. Mastoid air cells: Normal as visualized. No mastoid effusion. Orbital cavities: Unremarkable. Soft tissues: Unremarkable. IMPRESSION: No acute intracranial abnormality. Dictated and Authenticated by: Jaquan Alcala MD. Ordering:MYKE Santos MD
[2023-08-26 16:30] LABS: Bilirubin Negative (Negative); Blood Trace-lysed (Negative); Clarity Clear (Clear); Glucose Negative (Negative); Ketones Negative (Negative); Leukocyte Esterase Negative (Negative); Nitrite Negative (Negative); Specific Gravity 1.015 (1.005-1.025); Urobilinogen 0.2 mg/dL (Up to 0.2); pH 7.5 (5-8)
[2023-08-26 16:48] LABS: Bacteria Negative HPF (Negative); C & S Indicated? No; Crystals Negative HPF (Negative); Epithelial Cells Rare HPF (Negative); Mucus Negative (Negative); WBC Negative HPF (0-5)
[2023-08-28 11:59] LABS: Lyme Ab w Rflx to Lyme Confirm Negative (Negative)
[2023-08-29 23:37] LABS: Anaplasma phagocytophilum Negative (Negative); B. miyamotoi PCR Negative (Negative); Babesia divergens/MO-1 Negative (Negative); Babesia duncani Negative (Negative); Babesia microti Negative (Negative); Ehrlichia chaffeensis Negative (Negative); Ehrlichia ewingii/canis Negative (Negative); Ehrlichia muris eauclairensis Negative (Negative)
== END 2023-08-26 17:14 | disposition home or self-care (01) ==
PROVIDERS: Registered Nurse Emergency; Emergency Provider Physician Assistant; PCP Student in an Organized Health Care Education/Training Program
DX: H53.2 Diplopia (principal); H49.22 Sixth [abducent] nerve palsy, left eye; E78.5 Hyperlipidemia, unspecified; Z87.891 Personal history of nicotine dependence
CPT/HCPCS: 00123; 36415; 80053; 87798; 99284; 70551; 81003; 81015; 83735; 85025; 85610; 85730; 86618

== ENCOUNTER 2023-11-07 00:10 | Outpatient (CLI) | payer MEDICARE, SELFPAY ==
--- NOTE | 2023-11-07 | DI.CT_ITS ---
Exam(s) CT THORAX ABD/PEL CTA EXAM: CT THORAX ABD/PEL CTA CLINICAL HISTORY: CRANICAL GCA EVAL FOR LG VESSEL INVOLVMENT,. TECHNIQUE: Imaging Protocol: Axial CT angiography was performed with multi-slice acquisition and m ulti-planar and/or 3D reconstructions. CONTRAST MATERIAL: Intravenous: Omnipaque 350 Contrast volume:70 mL Oral: yes / no COMPARISON: No exams were available for comparison FINDINGS: CHEST: Pulmonary Arteries: No evidence of filling defect to suggest pulmonary emboli. Tracheobronchial tree: Patent where visualized. Mediastinum and Amada: No dominant adenopathy or fluid collection. Pulmonary parenchyma: No consolidation or dominant measurable mass. No architectural distortion. Pleura: No effusion or pneumothorax. Heart: The heart is not dilated. Mild coronary artery calcifications are seen. Aorta: Thoracic aorta non-dilated. minimal atherosclerotic changes. Bones: Scoliosis and degenerative changes. Tubes, Catheters, and Lines: None ABDOMEN AND PELVIS: Abdomen: Celiac axis: Calcification at origin causing approximately 50 percent stenosis. Mesenteric arteries: Mild calcification origin of SMA without significant stenosis. no evidence of o cclusion or significant stenosis. GLORIA is patent. Renal Arteries: No evidence of occlusion or significant stenosis. There is a single renal artery per fusing each kidney. Focus of calcific plaque at the proximal left renal artery without significant stenosis. Aorta: No evidence of occlusion or significant stenosis. No aneurysm or dissection. Minimal athe rosclerotic changes. Pelvis: Iliac Arteries: No evidence of occlusion or significant stenosis. Common Femoral Arteries: No evidence of occlusion or significant stenosis. ABDOMEN: Liver: Normal density. No measurable mass. Portal, Superior Mesenteric, and Splenic Veins: Unremarkable. Gallbladder and Biliary Tract: No radiodense calculus or dilation. Pancreas: Normal density, no abnormal calcifications or inflammatory process. Spleen: Normal. Adrenals: No masses seen. Kidneys: Normal size, contour and axis. No radiodense stones or obstructive uropathy. No masses seen. Bowel: No obstruction or bowel wall thickening. Appendix is unremarkable. Peritoneal Cavity: No ascites, collection or mesenteric inflammatory response. Lymph Nodes: Within normal limits. Bones: Unremarkable. Soft Tissues: Unremarkable. PELVIS: Bladder: Symmetric distention, no gross wall thickening. Reproductive Organs: Unremarkable as visualized. Lymph Nodes: Within normal limits. Bones: Within normal limits. IMPRESSION: Mild atherosclerotic changes. No evidence of vessel wall thickening or beading. approximate 50 per cent stenosis at proximal celiac axis secondary to calcific plaque. RADIATION DOSE DELIVERED: Total DLP DATA REPOSITORY: All CT scans at this facility are submitted to the National Radiology Data Registry (NRDR) Dose Index Registry (DIR) with the [employer] ([employer]). RADIATION OPTIMIZATION: All CT scans at this facility use at least one of these dose optimization te chniques: automated exposure control; mA and/or kV adjustment per patient size (includes targeted exa ms where dose is matched to clinical indication); or iterative reconstruction.
[2023-11-07] MEDS: Omnipaque 350 MG/ML 100 ML BTL 70 ML IJ (11:10)
[2023-11-07] MEDS: Omnipaque 350 MG/ML 50 ML BTL 80 ML IJ (11:11)
[2023-11-07] MEDS: Normal Saline - Diluent 50 ML VIAL IJ ×2 (11:12→11:13)
--- NOTE | 2023-11-07 11:27 | DI.CT_ITS ---
Exam(s) CT BRAIN NECK CTA EXAM: CT BRAIN NECK CTA CLINICAL HISTORY: CRANICAL GCA EVAL FOR LG VESSEL INVOLVMENT,. TECHNIQUE: Imaging Protocol: Axial CT angiography was performed with multi-slice acquisition and mu lti-planar and MIP reconstructions. CONTRAST MATERIAL: Intravenous: Omnipaque 350 Contrast volume:100 ml COMPARISON: MR MR BRAIN WO from 08/26/2023 FINDINGS: CT Head W/O and W contrast: Ventricles and Extra axial spaces: Normal in size and morphology for the patient's age. Hemorrhage: None. Cerebral parenchyma: No evidence of acute infarct or mass. Mild atrophy. mild white matter wilhelm es of small vessel disease. Midline shift: None. Brainstem/Cerebellum: No acute findings.. Calvarium: Normal. Visualized Paranasal sinuses/Mastoids: Clear. Soft Tissues: Unremarkable. Enhancement: Normal. CTA Brain W: Internal Carotid Arteries: Petrous: Normal. Cavernous: Normal. Cerebral: Normal. Middle Cerebral Arteries: Right: No aneurysm, occlusion or significant stenosis. Left: No aneurysm, occlusion or significant stenosis. Anterior Cerebral Arteries: Right: No aneurysm, occlusion or significant stenosis. Left: No aneurysm, occlusion or significant stenosis. Posterior cerebral Arteries: Right: No aneurysm, occlusion or significant stenosis. Left: No aneurysm, occlusion or significant stenosis. Vertebral Arteries: Right: No aneurysm, occlusion or significant stenosis. Left: No aneurysm, occlusion or significant stenosis. Basilar Artery: No aneurysm, occlusion or significant stenosis. CTA Neck W: Common Carotid: Mild calcific plaque at both common carotid bulbs and proximal internal carotid arter ies. Right: No dissection, occlusion or significant stenosis. Left: No dissection, occlusion or significant stenosis. External Carotid: Right: No dissection, occlusion or significant stenosis. Left: No dissection, occlusion or significant stenosis. Internal Carotid: Right: No dissection, occlusion or significant stenosis. Left: No dissection, occlusion or significant stenosis. Vertebral Artery: Right: No dissection, occlusion or significant stenosis. Left: No dissection, occlusion or significant stenosis. Lung Apices: No acute findings. Bones: No acute abnormality. Soft Tissues: Normal. IMPRESSION: 1. CTA brain: Normal CTA examination of the [place]. 2. Head CT: Unremarkable CT Head. 3. CTA neck: Mild calcific plaque at the common carotid bulbs and proximal internal carotid arteries without significant stenosis. The external carotid arteries are symmetric in diameter. RADIATION DOSE DELIVERED: Total DLP DATA REPOSITORY: All CT scans at this facility are submitted to the National Radiology Data Registry (NRDR) Dose Index Registry (DIR) with the [employer] (ACR). RADIATION OPTIMIZATION: All CT scans at this facility use at least one of these dose optimization te chniques: automated exposure control; mA and/or kV adjustment per patient size (includes targeted exa ms where dose is matched to clinical indication); or iterative reconstruction.
== END 2023-11-07 00:30 ==
LOC: DI 00:10
PROVIDERS: PCP Student in an Organized Health Care Education/Training Program; Visit Provider Internal Medicine Rheumatology
DX: M31.6 Other giant cell arteritis (principal)
CPT/HCPCS: 70496; 70498; 71275; 74174; J3490; Q9967

== ENCOUNTER → 2024-10-27 07:56 | Outpatient (BNVA) | payer MEDICARE, SELFPAY | PROVIDERS: PCP Family Medicine; Referring Provider Family Medicine; Visit Provider Student in an Organized Health Care Education/Training Program | DX: M75.101 Unspecified rotator cuff tear or rupture of right shoulder, not specified as traumatic (principal); M67.921 Unspecified disorder of synovium and tendon, right upper arm | CPT/HCPCS: 99213 ==

== ENCOUNTER 2024-11-05 01:28 | Outpatient (CLI) | payer MEDICARE, SELFPAY ==
--- NOTE | 2024-11-05 11:00 | DI.MRI_ITS ---
Exam(s) MR UPPER JOINT RT WO EXAM: MR UPPER JOINT RT WO CLINICAL HISTORY: R SHOULDER PAIN, TENDINOPATHY RT BICEPS TENDON, RT ROTATOR CUFF TECHNIQUE: Multiplanar multisequence MRI of the shoulder was performed. COMPARISON: CR XR SHOULDER RT COMPLETE 2+V from 05/22/2021 CR XR SHOULDER MIN 2V RT from 10/05/2024 FINDINGS: MARROW:There is no evidence of fracture, Hill-Sachs deformity, nor ominous osseous lesions. GLENOHUMERAL JOINT: There is a small glenohumeral joint effusion. There is more prominent amount of fluid in the subacromial-subdeltoid bursa, most prominent anteriorly. Minimal degenerative changes. No osteophytes. No degenerative subarticular cysts. ROTATOR CUFF MECHANISM: AC JOINT/ACROMIUM: There are mild degenerative changes in the AC joint.. No obvious downgoing osteophytes. No os acromiale. The subacromial space height appears normal. Supraspinatus: There is a full-thickness tear of the supraspinatus tendon above the level of the greater tuberosity, this superimposed upon tendinitis/tendinosis signal in the supraspinatus. There is continuity of fluid signal evident through the tear into the fluid-filled subacromial-subdeltoid bursa.. There is no muscle belly atrophy Infraspinatus: Mild insertional tendinitis. Some mild increased signal at the conjoined level but the full-thickness tear is mostly confined to the supraspinatus component of the rotator cuff mechanism. There is no muscle belly atrophy. Teres Minor: Intact. No evidence of tear nor muscle atrophy. Subscapularis/anterior cuff: Intact. No abnormal signal at the level of the multipennate insertional fibers. No significant tear nor atrophy. BICEPS TENDON: Exhibits normal position within the intertubercular groove. No evidence of tear. LABRUM: There is some signal abnormality in the anterior-superior labrum at the biceps attachment which does not have the appearance of typical sulcus and may be a small labral tear at this level. The posterior labrum is intact. There is no avulsion of the anterior inferior labrum and no intraosseous signal abnormality in the osseous glenoid at this level to suggest the presence of a Bankart lesion. There is no disruption of the scapular periosteum at this level. The inferior labrum appears intact and there is no obvious tear of the inferior glenohumeral ligament. QUADRILATERAL SPACE: No evidence of mass in the region of the axillary nerve and dorsal circumflex humeral vessels. Visualized triceps muscle at this level appears unremarkable. IMPRESSION: 1. There is a full-thickness tear of the supraspinatus tendon with fluid continuity evident through the tear into the somewhat fluid distended subacromial-subdeltoid bursa. 2. There is some signal abnormality in the anterior superior labrum at the biceps tendon attachment site which may represent an element of SLAP labral tear at this level. The inferior aspect of the anterior labrum is intact and there is no evidence of Bankart lesion. The posterior and inferior labrum are intact. 3. Biceps tendon is not displaced from the intertubercular groove. DATA REPOSITORY:
== END 2024-11-05 01:48 ==
PROVIDERS: PCP Family Medicine; Visit Provider Student in an Organized Health Care Education/Training Program
DX: M75.111 Incomplete rotator cuff tear or rupture of right shoulder, not specified as traumatic (principal)
CPT/HCPCS: 73221